=== PATIENT | male | born 1940 | race Caucasian/White ===

== ENCOUNTER 2017-08-29 09:50 | Day surgery (SDC) | payer MEDICARE, BC ==
[2017-08-25 12:11] VITALS: BMI 26.6
[~2017-08-29 09:50] MED LIST: LACTATED RINGERS 1,000 ML IV SCH
[2017-08-29] MEDS ORDERED: LIDOCAINE 1% 20 ML VIAL (10MG/ML) FOR IV START INTRADERMA ONE (10:45)
[2017-08-29 11:00] VITALS: TEMP 98.2
[2017-08-29] MEDS ORDERED: LIDOCAINE 1% INJ 10MG/ML (20 ML MDV) ONE (11:49)
[2017-08-29] MEDS ORDERED: PROPOFOL 10 MG/ML 20 ML VIAL IV ONE (11:49)
--- NOTE | 2017-08-29 12:19 | P.PCN ---
Date of Procedure: 08/29/17 Procedure(s) Performed: Procedure: Colonoscopy and polypectomy. Preoperative diagnosis: Screening for neoplasia, patient has history of polyps. Postoperative diagnosis: 1. Distal sigmoid polyp snared but no large polyps or cancer. 2. Sigmoid diverticulosis with no evidence of acute diverticulitis or strictures. Preparation: HalfLytely prep. Sedation: Was provided by anesthesia. Brief clinical history: The patient is a 77-year-old male who is scheduled for this evaluation for screening for neoplasia because of history of polyps. He has no abdominal complaints, bleeding or anemia. Procedure: With the patient on his left lateral decubitus position and after informed consent and adequate sedation, the perianal area was inspected and it did not show any fissures or fistulas. There were no masses felt on digital rectal examination. The Olympus CFQ 160L video colonoscope was then inserted in the rectum in the usual fashion and advanced to the cecum. There were multiple diverticular orifices seen scattered in the sigmoid but I saw no evidence of acute diverticulitis or strictures. In the distal sigmoid there was a 1-1.5 cm polyp which was snared and retrieved by suction but there was no large polyps or cancer. I retroflexed the endoscope in the rectum before the endoscope was withdrawn. The patient tolerated the procedure well. Plan: The patient was reassured. I discussed with his family as well. Advised dietary measures. He will follow up with you as planned and further screening in 5 years will depend on his overall health at that time.
[2017-08-29] MEDS ORDERED: ENALAPRILAT 1.25 MG/ML 1 ML VIAL IVP ONE ×2 (12:49→13:50)
[2017-08-29 13:05] VITALS: RESP 18
[2017-08-29] MEDS ORDERED: hydrALAZINE HCL 20 MG/ML 1 ML VIAL IVP ONE (13:18)
[2017-08-29 14:18] VITALS: BP 178/84; PULSE 60
== END 2017-08-29 14:20 | disposition home or self-care (01) ==
LOC: ORWHC2ENDO 09:50
DX: Z12.11 Encounter for screening for malignant neoplasm of colon (principal); D12.5 Benign neoplasm of sigmoid colon; K57.30 Diverticulosis of large intestine without perforation or abscess without bleeding; Z86.010 Personal history of colon polyps; I10 Essential (primary) hypertension; E78.5 Hyperlipidemia, unspecified; Z79.899 Other long term (current) drug therapy
CPT/HCPCS: 88305; 45385; J0360; J2001; J2704

== ENCOUNTER 2018-11-23 17:43 | Emergency (ER) | payer MEDICARE, BC ==
[2018-11-23 19:26] LABS: ALT 231 U/L (21-72); AST 307 U/L (17-59); African American GFR (CKD) >90 (>60 ml/min/1.73 sqM); Albumin 4.1 g/dL (3.5-5.0); Alkaline Phosphatase 143 U/L (38-126); Anion Gap 15 mmol/L; Bilirubin, Delta 0.5 mg/dL (0.0-0.2); Blood Urea Nitrogen 18 mg/dL (9-20); Calcium 9.3 mg/dL (8.4-10.2); Carbon Dioxide 25 mmol/L (22-30); Chloride 96 mmol/L (98-107); Glucose 123 mg/dL (74-99); INR 0.9 (<1.2); Partial Thromboplastin Time 24.6 sec (22.0-30.0); Potassium 3.6 mmol/L (3.5-5.1); Sodium 136 mmol/L (137-145); Total Bilirubin 1.5 mg/dL (0.2-1.3); Total Protein 7.5 g/dL (6.3-8.2)
[2018-11-23 19:31] LABS: Basophils # (A) 0.3 k/uL (0-0.2); Basophils % (A) 3 %; Eosinophils # (A) 0.1 k/uL (0-0.7); Eosinophils % (A) 1 %; HCT 37.9 % (39.0-53.0); HGB 12.5 gm/dL (13.0-17.5); Lymphocytes # (A) 0.9 k/uL (1.0-4.8); Lymphocytes % (A) 9 %; MCH 29.4 pg (25.0-35.0); MCV 89.2 fL (80.0-100.0); Mean Platelet Volume 7.3; Monocytes # (A) 0.8 k/uL (0-1.0); Monocytes % (A) 8 %; Neutrophils % (A) 77 %; Platelet Count 193 k/uL (150-450); RBC 4.25 m/uL (4.30-5.90); RDW 12.9 % (11.5-15.5); WBC 10.4 k/uL (3.8-10.6)
[2018-11-23 20:01] LABS: Amorphous Sediment,Urine Occasional /hpf; Appearance,Urine Turbid (Clear); Bacteria,Urine Moderate /hpf; Bilirubin,Urine Negative (Negative); Blood,Urine Moderate (Negative); Color,Urine Yellow; Glucose,Urine (UA) Negative (Negative); Ketones,Urine Negative (Negative); Leukocyte Esterase,Urine Large (Negative); Nitrite,Urine Positive (Negative); PH, Urine 5.5 (5.0-8.0); Protein,Urine 1+ (Negative); RBC,Urine 49 /hpf (0-5); Specific Gravity,Urine 1.015 (1.001-1.035); Squamous Epithelial Cell,Urine 2 /hpf (0-4); WBC,Urine >182 /hpf (0-5)
[2018-11-23] MEDS ORDERED: cefTRIAXone IN SWFI 1,000 MG/10 ML SYRINGE IVP STA (21:02)
[2018-11-23 21:24] VITALS: BP 147/75; PULSE 78; RESP 19; TEMP 98.7
[2018-11-23 21:33] LABS: Lactic Acid, Venous 1.1 mmol/L (0.7-2.0)
[2018-11-23 21:42] LABS: Ammonia <9 umol/L (<30)
--- NOTE | 2018-11-23 22:15 | ED ---
General Adult HPI - General Chief complaint: Recheck/Abnormal Lab/Rx Stated complaint: High white blood count & bilirubin Time Seen by Provider: 11/23/18 17:50 Source: patient, family Mode of arrival: ambulatory Limitations: no limitations - History of Present Illness Initial comments: The patient is a 78-year-old male presents to the emergency room with reported abnormal labs. He states that earlier this week he felt generally weak. He followed up in Dr. Rick's office and had laboratory studies performed. They got a call this evening stating that the patient's white blood cell count and bilirubins were high. He does present to the emergency room and still complaining of generalized weakness. Denies any fevers, chills, nausea or vomiting. No chest pain or shortness of breath. Denies any abdominal pain. Denies any tea-colored urine or-colored stools. Diarrhea, constipation, melanotic stools or hematochezia. Patient does report having a gallbladder. No Tylenol use. Will have one beer every night. No history of end-stage liver d isease. Denies any headaches or visual changes. The patient does have a history of dementia however no additional confusion. No reported cough or chest pain. Denies any urinary complaints. There are no other alleviating, precipitating or modifying factors - Related Data Home Medications Medication Instructions Recorded Confirmed Atorvastatin [Lipitor] 10 mg PO HS 08/25/17 11/23/18 Cholecalciferol [Vitamin D3] 4,000 unit PO HS 08/25/17 11/23/18 Cyanocobalamin (Vitamin B-12) 1,000 mcg PO HS 08/25/17 11/23/18 [Vitamin B-12] Lisinopril-Hctz 20-12.5 mg 1 tab PO HS 08/25/17 11/23/18 [Zestoretic 20-12.5] [place]-3 Fatty Acids/Fish Oil [Fish 1 cap PO HS 08/25/17 11/23/18 Oil 1,000 mg Softgel] amLODIPine BESYLATE [Norvasc] 2.5 mg PO HS 08/25/17 11/23/18 Previous Rx's Medication Instructions Recorded Cephalexin [Keflex] 500 mg PO Q6HR #28 cap 11/23/18 Allergies Allergy/AdvReac Type Severity Reaction Status Date / Time No Known Allergies Allergy Verified 11/23/18 20:01 Review of Systems ROS Statement: Those systems with pertinent positive or pertinent negative responses have been documented in the HPI. ROS Other: All systems not noted in ROS Statement are negative. Past Medical History Past Medical History: Hyperlipidemia, Hypertension, Memory Impairment History of Any Multi-Drug Resistant Organisms: None Reported Past Surgical History: Orthopedic Surgery Additional Past Surgical History / Comment(s): URINARY TRACT SURGERY, LEFT KNEE SURGERY Past Anesthesia/Blood Transfusion Reactions: No Reported Reaction Past Psychological History: No Psychological Hx Reported Smoking Status: Former smoker Past Alcohol Use History: Daily Past Drug Use History: None Reported - Past Family History Mother Family Medical History: No Reported History General Exam Limitations: no limitations General appearance: alert, in no apparent distress Head exam: Present: atraumatic, normocephalic, normal inspection Eye exam: Present: normal appearance, PERRL, EOMI. Absent: scleral icterus, co njunctival injection, periorbital swelling ENT exam: Present: normal exam, mucous membranes moist Neck exam: Present: normal inspection. Absent: tenderness, meningismus, lymphadenopathy Respiratory exam: Present: normal lung sounds bilaterally. Absent: respiratory distress, wheezes, rales, rhonchi, stridor Cardiovascular Exam: Present: regular rate, normal rhythm, normal heart sounds. Absent: systolic murmur, diastolic murmur, rubs, gallop, clicks GI/Abdominal exam: Present: soft, normal bowel sounds. Absent: distended, tenderness, guarding, rebound, rigid Extremities exam: Present: normal inspection, full ROM, normal capillary refill. Absent: tenderness, pedal edema, joint swelling, calf tenderness Back exam: Present: normal inspection Neurological exam: Present: alert, oriented X3, CN II-XII intact Psychiatric exam: Present: normal affect, normal mood Skin exam: Present: warm, dry, intact, normal color. Absent: rash Course Vital Signs 11/23/18 11/23/18 17:49 21:20 Temperature 98.5 F 98.7 F Pulse Rate 75 78 Respiratory 20 19 Rate Blood Pressure 140/72 147/75 O2 Sat by Pulse 97 98 Oximetry Medical Decision Making - Medical Decision Making Upon arrival the patient was placed into room 15. A history of physical exam was performed on the patient. Peripheral IV is established. Laboratory studies demonstrated normal white blood cell count 10.4. Glucose was 123, bilirubin 1.5, AST 307, ALT 231, alk phos of 143, ammonia less than 9. Urinalysis shows moderate blood, large esterase, 49 red blood cells, greater than 182 white blood cells, many white blood cell clumps, occasional amorphous sediment and moderate bacteria. Because this I did give the patient also Rocephin. I did recommend a CT the patient's abdomen and pelvis as well as a gallbladder ultrasound. Preliminary report demonstrated hyperechoic bile however no gallstones or signs of acute cholecystitis. CT of abdomen and pelvis was essentially unremarkable for acute process. I did discuss these results with the patient. I did offer turning the patient's labs however he was very adamant that he wanted to go home at this time. I will prescribe him Keflex. He is follow up with his primary care physician regarding his laboratory findings. The patient was discharged home in stable condition - Lab Data Result diagrams: 11/23/18 18:48 11/23/18 18:48 Lab Results 11/23/18 11/23/18 11/23/18 Range/Units 18:48 18:48 18:48 WBC 10.4 (3.8-10.6) k/uL RBC 4.25 L (4.30-5.90) m/uL Hgb 12.5 L (13.0-17.5) gm/dL Hct 37.9 L (39.0-53.0) % MCV 89.2 (80.0-100.0) fL MCH 29.4 (25.0-35.0) pg MCHC 33.0 (31.0-37.0) g/dL RDW 12.9 (11.5-15.5) % Plt Count 193 (150-450) k/uL Neutrophils % 77 % Lymphocytes % 9 % Monocytes % 8 % Eosinophils % 1 % Basophils % 3 % Neutrophils # 8.0 H (1.3-7.7) k/uL Lymphocytes # 0.9 L (1.0-4.8) k/uL Monocytes # 0.8 (0-1.0) k/uL Eosinophils # 0.1 (0-0.7) k/uL Basophils # 0.3 H (0-0.2) k/uL PT 10.0 (9.0-12.0) sec INR 0.9 (<1.2) APTT 24.6 (22.0-30.0) sec Sodium 136 L (137-145) mmol/L Potassium 3.6 (3.5-5.1) mmol/L Chloride 96 L (98-107) mmol/L Carbon Dioxide 25 (22-30) mmol/L Anion Gap 15 mmol/L BUN 18 (9-20) mg/dL Creatinine 0.85 (0.66-1.25) mg/dL Est GFR (CKD-EPI)AfAm >90 (>60 ml/min/1.73 sqM) Est GFR (CKD-EPI)NonAf 85 (>60 ml/min/1.73 sqM) Glucose 123 H (74-99) mg/dL Plasma Lactic Acid Karel (0.7-2.0) mmol/L Calcium 9.3 (8.4-10.2) mg/dL Total Bilirubin 1.5 H (0.2-1.3) mg/dL Conjugated Bilirubin 0.0 (0.0-0.3) mg/dL Unconjugated Bilirubin 1.0 (0.0-1.1) mg/dL Delta Bilirubin 0.5 H (0.0-0.2) mg/dL AST 307 H (17-59) U/L ALT 231 H (21-72) U/L Alkaline Phosphatase 143 H (38-126) U/L Ammonia (<30) umol/L Total Protein 7.5 (6.3-8.2) g/dL Albumin 4.1 (3.5-5.0) g/dL Lipase 192 (23-300) U/L Urine Color Urine Appearance (Clear) Urine pH (5.0-8.0) Ur Specific [place] (1.001-1.035) Urine Protein (Negative) Urine Glucose (UA) (Negative) Urine Ketones (Negative) Urine Blood (Negative) Urine Nitrite (Negative) Urine Bilirubin (Negative) Urine Urobilinogen (<2.0) mg/dL Ur Leukocyte Esterase (Negative) Urine RBC (0-5) /hpf Urine WBC (0-5) /hpf Urine WBC Clumps (None) /hpf Ur Squamous Epith Cells (0-4) /hpf Amorphous Sediment (None) /hpf Urine Bacteria (None) /hpf 11/23/18 11/23/18 Range/Units 19:36 21:11 WBC (3.8-10.6) k/uL RBC (4.30-5.90) m/uL Hgb (13.0-17.5) gm/dL Hct (39.0-53.0) % MCV (80.0-100.0) fL MCH (25.0-35.0) pg MCHC (31.0-37.0) g/dL RDW (11.5-15.5) % Plt Count (150-450) k/uL Neutrophils % % Lymphocytes % % Monocytes % % Eosinophils % % Basophils % % Neutrophils # (1.3-7.7) k/uL Lymphocytes # (1.0-4.8) k/uL Monocytes # (0-1.0) k/uL Eosinophils # (0-0.7) k/uL Basophils # (0-0.2) k/uL PT (9.0-12.0) sec INR (<1.2) APTT (22.0-30.0) sec Sodium (137-145) mmol/L Potassium (3.5-5.1) mmol/L Chloride (98-107) mmol/L Carbon Dioxide (22-30) mmol/L Anion Gap mmol/L BUN (9-20) mg/dL Creatinine (0.66-1.25) mg/dL Est GFR (CKD-EPI)AfAm (>60 ml/min/1.73 sqM) Est GFR (CKD-EPI)NonAf (>60 ml/min/1.73 sqM) Glucose (74-99) mg/dL Plasma Lactic Acid Karel 1.1 (0.7-2.0) mmol/L Calcium (8.4-10.2) mg/dL Total Bilirubin (0.2-1.3) mg/dL Conjugated Bilirubin (0.0-0.3) mg/dL Unconjugated Bilirubin (0.0-1.1) mg/dL Delta Bilirubin (0.0-0.2) mg/dL AST (17-59) U/L ALT (21-72) U/L Alkaline Phosphatase (38-126) U/L Ammonia <9 (<30) umol/L Total Protein (6.3-8.2) g/dL Albumin (3.5-5.0) g/dL Lipase (23-300) U/L Urine Color Yellow Urine Appearance Turbid (Clear) Urine pH 5.5 (5.0-8.0) Ur Specific [place] 1.015 (1.001-1.035) Urine Protein 1+ H (Negative) Urine Glucose (UA) Negative (Negative) Urine Ketones Negative (Negative) Urine Blood Moderate H (Negative) Urine Nitrite Positive (Negative) Urine Bilirubin Negative (Negative) Urine Urobilinogen 3.0 (<2.0) mg/dL Ur Leukocyte Esterase Large H (Negative) Urine RBC 49 H (0-5) /hpf Urine WBC >182 H (0-5) /hpf Urine WBC Clumps Many H (None) /hpf Ur Squamous Epith Cells 2 (0-4) /hpf Amorphous Sediment Occasional H (None) /hpf Urine Bacteria Moderate H (None) /hpf Disposition Clinical Impression: Elevated liver enzymes, Urinary tract infection Disposition: HOME SELF-CARE Condition: Stable Instructions (If sedation given, give patient instructions): Urinary Tract Infection in Men (ED) Additional Instructions: Please follow-up with your primary care physician regarding your elevated liver enzymes. Return to the emergency room any new or worsening symptoms Prescriptions: Cephalexin [Keflex] 500 mg PO Q6HR #28 cap Is patient prescribed a controlled substance at d/c from ED?: No Referrals: Catarino Rick MD [Primary Care Provider] - 1-2 days Time of Disposition: 22:15
--- NOTE | 2018-11-24 11:34 | US ---
EXAMINATION TYPE: US gallbladder DATE OF EXAM: 11/23/2018 COMPARISON: CT 2019 CLINICAL HISTORY: elevated liver enzymes. Elevated liver enzymes. HTN. Hyperlipidemia. EXAM MEASUREMENTS: Liver Length: 18.9 cm Gallbladder Wall: 0.22 cm CBD: 0.38 cm Right Kidney: 10.9 x 6.0 x 5.2 cm Pancreas: limited due to overlying bowel gas Liver: Enlarged. Normal <15.5 cm. Gallbladder: Internal echoes are seen within the gallbladder. Evidence for sonographic Fiore's sign: no CBD: appears wnl Right Kidney: No hydronephrosis or masses seen IMPRESSION: 1. Debris within the gallbladder. 2. Hepatomegaly 3. Preliminary results were provided by the on-call radiologist.
--- NOTE | 2018-11-24 12:28 | CT ---
EXAMINATION TYPE: CT abdomen pelvis w con DATE OF EXAM: 11/23/2018 COMPARISON: None HISTORY: Elevated white blood cell count CT DLP: 1023.5 mGycm Automated exposure control for dose reduction was used. CONTRAST: CT scan of the abdomen pelvis is performed, patient injected with 100 mL of Isovue 300. FINDINGS- preliminary report provided by radiologist food concession manager LUNG BASES-there is subsegmental changes at both lung bases. Heart is enlarged and there is dense cor onary artery calcification. Mild prominence of the aortic root. There is a small hiatal hernia.. LIVER/GB-there is mild central biliary ductal dilation. No obvious gallstones.. PANCREAS- No gross abnormality is seen. SPLEEN- No gross abnormality is seen. ADRENALS- No gross abnormality is seen. KIDNEYS/BLADDER-there are 2 subcentimeter hypodensities within the right kidney too small to characte rize.. BOWEL-diverticulosis of the bowel with no diagnostic evidence of obstruction.. LYMPH NODES- No greater than 1cm abdominal or pelvic lymph nodes areappreciated. OSSEOUS STRUCTURES-hypertrophic change of the spine noted. There are multiple lucent small subcentime ter lytic lesions involving the iliac bone and sacrum for which bone scan is suggested. OTHER- atherosclerotic change aorta. There is marked bladder wall thickening. The prostate is hetero geneous and enlarged. IMPRESSION- 1. Marked bladder wall thickening correlate for stones cystitis. Follow resolution to exclude underly ing mucosal lesion. 2. Prostate is enlarged and heterogeneous correlate for prostatitis. Correlate with PSA to determine if biopsy of the prostate necessary. 3. Multiple subcentimeter too small to characterize right renal lesions. 4. No gallstones correlate question of gallbladder sludge. There also appears to be very mild central biliary ductal dilation correlate with LFTs studies. 5. There are multiple subcentimeter lucent lesions involving the left iliac bone and sacrum for which bone scan is suggested. 6. Dense coronary artery calcification.
--- NOTE | 2018-11-24 12:36 | XR ---
EXAMINATION TYPE: XR chest 2V DATE OF EXAM: 11/23/2018 COMPARISON: 10/02/2010 TECHNIQUE: PA and lateral views submitted. HISTORY: Cough FINDINGS: The lungs are clear and there is no pneumothorax, pleural effusion, or focal pneumonia. Linear stanford ges at the lung base most typical atelectasis or scar. No overt failure. Arthropathy of the shoulders . Hypertrophic and degenerative change of the spine. IMPRESSION: 1. Basilar scar or atelectasis favored over pneumonia correlate clinically..
== END 2018-11-23 23:02 | disposition home or self-care (01) ==
LOC: EC 17:43
DX: N39.0 Urinary tract infection, site not specified (principal); R74.8 Abnormal levels of other serum enzymes; R53.1 Weakness; F03.90 Unspecified dementia, unspecified severity, without behavioral disturbance, psychotic disturbance, mood disturbance, and anxiety; E78.5 Hyperlipidemia, unspecified; I10 Essential (primary) hypertension; Z87.891 Personal history of nicotine dependence; Z79.899 Other long term (current) drug therapy; Z98.890 Other specified postprocedural states; Z53.20 Procedure and treatment not carried out because of patient's decision for unspecified reasons
CPT/HCPCS: 36415; 80053; 82140; 82248; 83605; 83690; 85025; 85610; 85730; 81001; 71046; 76705; 74177; 99284; 96374; J0696; Q9967

== ENCOUNTER → 2018-12-12 | Outpatient (CLI) | payer MEDICARE, BC ==
--- NOTE | 2018-12-12 21:21 | NM ---
EXAMINATION TYPE: NM bone scan whole body DATE OF EXAM: 12/12/2018 COMPARISON: CT 11/23/2018 HISTORY: 78-year-old male abnormal findings on diagnostic imaging. Technique: Delayed whole-body scanning was performed following the injection of 24.3 mCi Tc 99m MDP. Images acquired 3 hours post injection. FINDINGS: There is degenerative tracer activity at the right greater than left sternoclavicular joints and also degenerative change at the left anterior first rib end. Additional mild degenerative change at the A C joints. Focal activity at the right antecubital fossa relates to injection site. Otherwise, no othe r focal increased tracer activity is identified. IMPRESSION: 1. Degenerative tracer activity at the right greater than left sternoclavicular joints. 2. No scintigraphic evidence for osseous metastatic disease. 3. Given the subtle scattered lucent areas seen within the pelvis on the 11/23/2018 CT, correlate with laboratory assessment to exclude multiple myeloma.
== END | disposition home or self-care (01) ==
LOC: RADNMMAIN 09:48
PROVIDERS: ATTEND Internal Medicine Hematology & Oncology
DX: R93.7 Abnormal findings on diagnostic imaging of other parts of musculoskeletal system (principal)
CPT/HCPCS: 78306; A9503

== ENCOUNTER → 2021-06-04 | Outpatient (CLI) | payer MEDICARE ==
--- NOTE | 2021-06-05 06:40 | MR ---
EXAMINATION TYPE: MR brain wo con DATE OF EXAM: 06/04/2021 COMPARISON: NONE HISTORY: Memory loss, CVA, new onset dementia TECHNIQUE: Multiplanar, multisequence imaging of the brain and brainstem is performed without IV cont rast. FINDINGS: Diffusion weighted images demonstrate no evidence of a recent infarct or other diffusion abnormality. There is moderate ventricular and sulcal prominence. There are multifocal and confluent areas of T2 h yperintensity seen throughout the superficial, deep, and periventricular white matter bilaterally. Midline structures demonstrate normal morphology. The craniocervical junction appears within normal limits. Normal vascular flow voids are present. Incidental dominant left vertebral artery. Mild mucos al thickening involving anterior ethmoid sinuses bilaterally. Globes are intact bilaterally. IMPRESSION: 1. No MRI evidence for a recent infarct. 2. Background moderate diffuse cerebral atrophy and advanced chronic small vessel ischemic change is present. 3. Mild anterior chronic ethmoid sinus disease.
== END | disposition home or self-care (01) ==
LOC: RADMRIMAIN 07:16
PROVIDERS: ATTEND Psychiatry & Neurology Neurology
DX: G31.89 Other specified degenerative diseases of nervous system (principal); I67.82 Cerebral ischemia; J32.2 Chronic ethmoidal sinusitis
CPT/HCPCS: 70551

== ENCOUNTER → 2022-02-09 | Day surgery (SDC) | payer MEDICARE ==
[2022-02-04 14:52] VITALS: BMI 24.3
[~2022-02-09] MED LIST changes: +LIDOCAINE 1% (10MG/ML) FOR IV START INTRADERMA PRN; +LIDOCAINE 2% INJ 20 MG/ML (2 ML VIAL) ONE; +PROPOFOL 10 MG/ML 20 ML VIAL IV ONE
[2022-02-09 08:46] VITALS: TEMP 98
--- NOTE | 2022-02-09 09:20 | P.PCN ---
Date of Procedure: 02/09/22 Procedure(s) Performed: BRIEF HISTORY: Patient is a 81-year-old pleasant white male male scheduled for an elective colonoscopy as a part of evaluation of prior history of colon polyps. Last colonoscopy was 4 years ago. PROCEDURE PERFORMED: Colonoscopy with snare polypectomy PREOPERATIVE DIAGNOSIS: History of colon polyps IV sedation per Anesthesia. PROCEDURE: After informed consent was obtained, the patient, was brought into the endoscopy unit. IV sedation was administered by Anesthesia under continuous monitoring. Digital rectal examination was normal. Initially the Olympus CF-160 flexible video colonoscope was then inserted in the rectum, gradually advanced into the cecum without any difficulty. Careful examination was performed as the scope was gradually being withdrawn. Ileocecal valve and the appendiceal orifice were visualized and appeared normal. Prep was excellent. Mucosa of the cecum, ascending colon, appeared normal. In the hepatic flexure there was a 2.5 cm broad-based polyp that was removed by piecemeal snare polypectomy and complete polypectomy accomplished. Rest of the transverse colon, descending colon, sigmoid colon, and rectum appeared normal. In the sigmoid: There was a 5 mm polyp removed by snare polyp rectum he. Scattered sigmoid diverticulosis seen. Retroflexion was performed in the rectum and no lesions were seen. The patient tolerated the procedure well. IMPRESSION: 2.5 cm broad-based hepatic flexure polyp status post polypectomy 5 mm sigmoid polyp status post polypectomy Scattered diffuse diverticulosis RECOMMENDATIONS: Findings of this examination were discussed with the patient as well as his family. He was advised to follow with the biopsy results. If the biopsy results adenoma he can have a repeat colonoscopy in 3 years.
[2022-02-09 09:48] VITALS: BP 130/70; PULSE 58; RESP 16
== END ==
LOC: ORWHC2ENDO 07:27
PROVIDERS: ATTEND Internal Medicine Gastroenterology
DX: Z12.11 Encounter for screening for malignant neoplasm of colon (principal); D12.3 Benign neoplasm of transverse colon; D12.5 Benign neoplasm of sigmoid colon; K57.30 Diverticulosis of large intestine without perforation or abscess without bleeding; I10 Essential (primary) hypertension; E78.5 Hyperlipidemia, unspecified; F03.90 Unspecified dementia, unspecified severity, without behavioral disturbance, psychotic disturbance, mood disturbance, and anxiety; Z79.01 Long term (current) use of anticoagulants; Z87.891 Personal history of nicotine dependence; Z79.83 Long term (current) use of bisphosphonates; Z98.890 Other specified postprocedural states; Z86.010 Personal history of colon polyps; Z79.899 Other long term (current) drug therapy
CPT/HCPCS: 88305; 45385; J2704; J2001

== ENCOUNTER 2022-02-11 17:15 | Emergency (ER) | payer MEDICARE ==
[2022-02-11 18:15] VITALS: TEMP 98
[2022-02-11] MEDS ORDERED: SODIUM CHLORIDE 0.9% 1,000 ML IV STA ×2 (18:47)
[2022-02-11 18:53] LABS: Glucose,Whole Blood 111 mg/dL (70-110)
[2022-02-11 19:06] VITALS: RESP 18
[2022-02-11 19:08] VITALS: BP 115/74; PULSE 55
[2022-02-11 19:08] LABS: Basophils # (A) 0.1 k/uL (0-0.2); Basophils % (A) 1 %; Eosinophils # (A) 0.3 k/uL (0-0.7); Eosinophils % (A) 3 %; HCT 33.2 % (39.0-53.0); HGB 11.5 gm/dL (13.0-17.5); Lymphocytes # (A) 3.3 k/uL (1.0-4.8); Lymphocytes % (A) 37 %; MCH 31.2 pg (25.0-35.0); MCHC 34.7 g/dL (31.0-37.0); MCV 90.1 fL (80.0-100.0); Mean Platelet Volume 8.4; Monocytes # (A) 0.6 k/uL (0-1.0); Monocytes % (A) 7 %; Neutrophils # (A) 4.3 k/uL (1.3-7.7); Neutrophils % (A) 49 %; Platelet Count 223 k/uL (150-450); RBC 3.68 m/uL (4.30-5.90); RDW 12.6 % (11.5-15.5); WBC 8.8 k/uL (3.8-10.6)
[2022-02-11 19:18] LABS: Albumin 3.4 g/dL (3.5-5.0); Calcium 8.6 mg/dL (8.4-10.2); Potassium 4.1 mmol/L (3.5-5.1); Total Bilirubin 0.4 mg/dL (0.2-1.3)
[2022-02-11 19:29] LABS: INR 1.1 (<1.2); Partial Thromboplastin Time 22.4 sec (22.0-30.0); Prothrombin Time 11.6 sec (9.0-12.0)
--- NOTE | 2022-02-11 19:51 | ED ---
GI Bleed HPI - General Chief complaint: GI Bleed Stated complaint: Rectal Bleeding Time Seen by Provider: 02/11/22 18:38 Source: patient Mode of arrival: ambulatory Limitations: no limitations - History of Present Illness Initial comments: This 81-year-old male presents with family for rectal bleeding. He apparently had a colonoscopy with all approximate done [address] Gordon from gastroenterology. He had been doing fine up until today when he had several episodes of bright red blood per rectum. While in the waiting room, he had a syncopal episode. He then had another syncopal episode when he got back to a bed in the emergency department which lasted 30-40 seconds. He denies any abdominal pain. There is no fevers or chills. The patient does have a degree of dementia and therefore most of history is obtained per and son. relates that he does not normally take any blood thinners. She gave him some aspirin yesterday for minor pain. No other complaints or modifying factors. - Related Data Home Medications Medication Instructions Recorded Confirmed Atorvastatin [Lipitor] 10 mg PO HS 08/25/17 02/09/22 Cholecalciferol [Vitamin D3] 100 mcg PO HS 08/25/17 02/09/22 Cyanocobalamin (Vitamin B-12) 1,000 mcg PO HS 08/25/17 02/09/22 [Vitamin B-12] Lisinopril-Hctz 20-12.5 mg 1 tab PO HS 08/25/17 02/09/22 [Zestoretic 20-12.5] [place]-3 Fatty Acids/Fish Oil [Fish 1 cap PO HS 08/25/17 02/09/22 Oil 1,000 mg Softgel] amLODIPine BESYLATE [Norvasc] 2.5 mg PO HS 08/25/17 02/09/22 Donepezil [Aricept] 10 mg PO DAILY 02/04/22 02/09/22 Memantine HCl 10 mg PO BID 02/04/22 02/09/22 Allergies Allergy/AdvReac Type Severity Reaction Status Date / Time No Known Allergies Allergy Verified 02/11/22 18:15 Review of Systems ROS Statement: Those systems with pertinent positive or pertinent negative responses have been documented in the HPI. ROS Other: All systems not noted in ROS Statement are negative. Past Medical History Past Medical History: Hyperlipidemia, Hypertension, Memory Impairment Additional Past Medical History / Comment(s): short term memory loss, diagnosed with dementia in 2020 pt alert and appropriate at this time, recent weight loss without trying, History of Any Multi-Drug Resistant Organisms: None Reported Past Surgical History: Orthopedic Surgery Additional Past Surgical History / Comment(s): URINARY TRACT SURGERY, LEFT KNEE SURGERY Past Anesthesia/Blood Transfusion Reactions: No Reported Reaction Past Psychological History: No Psychological Hx Reported Smoking Status: Former smoker Past Alcohol Use History: None Reported Past Drug Use History: None Reported - Past Family History Mother Family Medical History: No Reported History General Exam - General Exam Comments Initial Comments: GENERAL: The patient is well nourished and well hydrated. VITAL SIGNS: Heart rate, blood pressure, respiratory rate reviewed as recorded in nurse's notes. EYES: Pupils are round and reactive. Extraocular movements are intact. No conjunctival / lid redness or swelling. ENT: No external evidence of injury, swelling, or ecchymosis. Airway is patent. Throat is clear. NECK: Nontender. No swelling or evidence of injury. No subcutaneous emphysema. Trachea is midline. No thyroid mass. HEART: Regular rate and rhythm. Good peripheral pulses. LUNGS/CHEST: Breath sounds clear and equal bilaterally. No rales, rhonchi, or wheezes. No ecchymosis, subcutaneous emphysema, or tenderness. ABDOMEN: Abdomen soft without tenderness. No palpable masses or organomegaly. No peritoneal signs. No abdominal wall swelling or ecchymosis. EXTREMITIES: No extremity tenderness. Normal muscle tone and function. No thoracolumbar tenderness. NEUROLOGIC: Sensation is grossly intact. Cranial nerve exam reveals face is symmetrical, tongue is midline, speech is clear. SKIN: No abrasions or ecchymosis is noted. No induration or masses noted. PSYCHIATRIC: Alert but pleasantly demented. Appropriate behavior and judgment. Limitations: no limitations Course Vital Signs 02/11/22 02/11/22 02/11/22 18:08 18:34 18:37 Temperature 98 F Pulse Rate 68 40 L 42 L Respiratory 18 16 18 Rate Blood Pressure 132/78 52/40 62/40 O2 Sat by Pulse 100 96 98 Oximetry 02/11/22 02/11/22 18:42 19:07 Temperature Pulse Rate 50 L 55 L Respiratory 18 18 Rate Blood Pressure 106/71 115/74 O2 Sat by Pulse 96 100 Oximetry Medical Decision Making - Medical Decision Making The patient was seen and examined. All diagnostics were reviewed. The patient has an EKG done which shows a sinus bradycardia at a rate of 51. There is no acute ST-T wave changes identified. The VT intervals 242, QRS duration is 90, and the QTC intervals 408. The patient was placed on a internet consultant and this just shows a sinus bradycardia. Laboratory came back showing a low hemoglobin at 11.5. Remainder of labs are essentially within normal limits. We do not have any old hemoglobins on file to compare. It is felt as though he would benefit from transfer to a larger facility that has GI coverage is recurrently do not have any gastroenterology coverage. The patient does receive some moderate fluid hydration. He is doing well on recheck. He had another large bowel movement that was bloody in the emergency department. Family is agreeable with transfer. Case is discussed with Dr. Aranda from the emergency department and she is agreeable with transfer. - Lab Data Result diagrams: 02/11/22 18:40 02/11/22 18:40 Lab Results 02/11/22 02/11/22 02/11/22 Range/Units 18:40 18:40 18:40 WBC 8.8 (3.8-10.6) k/uL RBC 3.68 L (4.30-5.90) m/uL Hgb 11.5 L (13.0-17.5) gm/dL Hct 33.2 L (39.0-53.0) % MCV 90.1 (80.0-100.0) fL MCH 31.2 (25.0-35.0) pg MCHC 34.7 (31.0-37.0) g/dL RDW 12.6 (11.5-15.5) % Plt Count 223 (150-450) k/uL MPV 8.4 Neutrophils % 49 % Lymphocytes % 37 % Monocytes % 7 % Eosinophils % 3 % Basophils % 1 % Neutrophils # 4.3 (1.3-7.7) k/uL Lymphocytes # 3.3 (1.0-4.8) k/uL Monocytes # 0.6 (0-1.0) k/uL Eosinophils # 0.3 (0-0.7) k/uL Basophils # 0.1 (0-0.2) k/uL PT 11.6 (9.0-12.0) sec INR 1.1 (<1.2) APTT 22.4 (22.0-30.0) sec Sodium 139 (137-145) mmol/L Potassium 4.1 (3.5-5.1) mmol/L Chloride 106 (98-107) mmol/L Carbon Dioxide 27 (22-30) mmol/L Anion Gap 6 mmol/L BUN 19 (9-20) mg/dL Creatinine 0.97 (0.66-1.25) mg/dL Est GFR (CKD-EPI)AfAm 86 (>60 ml/min/1.73 sqM) Est GFR (CKD-EPI)NonAf 75 (>60 ml/min/1.73 sqM) Glucose 114 H (74-99) mg/dL POC Glucose (mg/dL) (70-110) mg/dL POC Glu Otolaryngology Nurse ID Calcium 8.6 (8.4-10.2) mg/dL Total Bilirubin 0.4 (0.2-1.3) mg/dL AST 27 (17-59) U/L ALT 24 (4-49) U/L Alkaline Phosphatase 68 (38-126) U/L Troponin I (0.000-0.034) ng/mL Total Protein 6.0 L (6.3-8.2) g/dL Albumin 3.4 L (3.5-5.0) g/dL Blood Type Recheck Bld Type Recheck Status 02/11/22 02/11/22 02/11/22 Range/Units 18:40 18:49 18:55 WBC (3.8-10.6) k/uL RBC (4.30-5.90) m/uL Hgb (13.0-17.5) gm/dL Hct (39.0-53.0) % MCV (80.0-100.0) fL MCH (25.0-35.0) pg MCHC (31.0-37.0) g/dL RDW (11.5-15.5) % Plt Count (150-450) k/uL MPV Neutrophils % % Lymphocytes % % Monocytes % % Eosinophils % % Basophils % % Neutrophils # (1.3-7.7) k/uL Lymphocytes # (1.0-4.8) k/uL Monocytes # (0-1.0) k/uL Eosinophils # (0-0.7) k/uL Basophils # (0-0.2) k/uL PT (9.0-12.0) sec INR (<1.2) APTT (22.0-30.0) sec Sodium (137-145) mmol/L Potassium (3.5-5.1) mmol/L Chloride (98-107) mmol/L Carbon Dioxide (22-30) mmol/L Anion Gap mmol/L BUN (9-20) mg/dL Creatinine (0.66-1.25) mg/dL Est GFR (CKD-EPI)AfAm (>60 ml/min/1.73 sqM) Est GFR (CKD-EPI)NonAf (>60 ml/min/1.73 sqM) Glucose (74-99) mg/dL POC Glucose (mg/dL) 111 H (70-110) mg/dL POC Glu Otolaryngology Nurse ID HenriqueerMeaghan Calcium (8.4-10.2) mg/dL Total Bilirubin (0.2-1.3) mg/dL AST (17-59) U/L ALT (4-49) U/L Alkaline Phosphatase (38-126) U/L Troponin I <0.012 (0.000-0.034) ng/mL Total Protein (6.3-8.2) g/dL Albumin (3.5-5.0) g/dL Blood Type Recheck No Previous Record Bld Type Recheck Status CABO Indicated Disposition Clinical Impression: Rectal bleeding, History of rectal polypectomy, Anemia, Sinus bradycardia, Dementia, Syncope Disposition: OTHER INSTITUTION NOT DEFINED Condition: Fair Time of Disposition: 19:55 - Out of Hospital Transfer - Req. Specs Out of Hospital Transfer - Requested Specifics: Other Emergency Center ([facility])
== END 2022-02-11 21:26 | disposition other institution (70) ==
LOC: EC 17:15
DX: K92.2 Gastrointestinal hemorrhage, unspecified (principal); D64.9 Anemia, unspecified; R00.1 Bradycardia, unspecified; F03.90 Unspecified dementia, unspecified severity, without behavioral disturbance, psychotic disturbance, mood disturbance, and anxiety; R55 Syncope and collapse; I10 Essential (primary) hypertension; E78.5 Hyperlipidemia, unspecified; Z86.010 Personal history of colon polyps; Z87.891 Personal history of nicotine dependence; Z79.899 Other long term (current) drug therapy
CPT/HCPCS: 36415; 80053; 84484; 85025; 85610; 85730; 86850; 86900; 86901; 93005; 96360; 96361; 99285

== ENCOUNTER 2022-03-07 11:51 | Emergency (ER) | payer MEDICARE ==
[2022-03-07 11:57] VITALS: TEMP 97.8
[2022-03-07] MEDS ORDERED: SODIUM CHLORIDE 0.9% 500 ML 500 ML IV STA (12:11)
--- NOTE | 2022-03-07 12:32 | XR ---
EXAMINATION TYPE: XR chest 2V DATE OF EXAM: 03/07/2022 12:25 PM COMPARISON: Chest radiographs from TECHNIQUE: XR chest 2V Frontal and lateral views of the chest. CLINICAL INDICATION:Male, 81 years old with history of syncope; FINDINGS: Lungs/Pleura: There is flattening of the diaphragm with increased lucency of the lungs. No evidence o f pneumothorax, pleural effusion or focal consolidation. Pulmonary vascularity: Unremarkable. Heart/mediastinum: Cardiomediastinal silhouette is unremarkable. Musculoskeletal: No acute osseous pathology. IMPRESSION: 1. No acute cardiopulmonary disease process. 2. COPD changes.
[2022-03-07 12:46] LABS: Basophils % (A) 1 %; Eosinophils # (A) 0.2 k/uL (0-0.7); Eosinophils % (A) 3 %; HCT 35.1 % (39.0-53.0); HGB 11.5 gm/dL (13.0-17.5); Lymphocytes % (A) 17 %; MCH 29.7 pg (25.0-35.0); MCHC 32.8 g/dL (31.0-37.0); MCV 90.7 fL (80.0-100.0); Mean Platelet Volume 8.2; Monocytes # (A) 0.4 k/uL (0-1.0); Monocytes % (A) 7 %; Neutrophils # (A) 4.1 k/uL (1.3-7.7); Neutrophils % (A) 70 %; Platelet Count 208 k/uL (150-450); RBC 3.87 m/uL (4.30-5.90); RDW 13.6 % (11.5-15.5); WBC 5.8 k/uL (3.8-10.6)
[2022-03-07 13:00] LABS: Albumin 3.9 g/dL (3.5-5.0)
[2022-03-07 13:02] LABS: Calcium 8.6 mg/dL (8.4-10.2); Magnesium 2.1 mg/dL (1.6-2.3); Potassium 3.8 mmol/L (3.5-5.1); Total Bilirubin 0.6 mg/dL (0.2-1.3); Total Protein 6.9 g/dL (6.3-8.2)
--- NOTE | 2022-03-07 13:02 | CT ---
EXAMINATION TYPE: CT brain wo con CT DLP: 1107.4 mGycm, Automated exposure control for dose reduction was used. DATE OF EXAM: 03/07/2022 12:50 PM COMPARISON: MR brain 06/04/2021 CLINICAL INDICATION:Male, 81 years old with history of syncope, ams TECHNIQUE: Brain: Axial CT images of the brain were obtained with coronal and sagittal reformats created and rev iewed. Contrast used: None. Oral contrast used: None. FINDINGS: Brain: Extra-axial spaces: No abnormal extra-axial fluid collections. Ventricular system: Dilatation in proportion to cerebral atrophy. Cerebral parenchyma: Cerebral atrophy. No acute intraparenchymal hemorrhage or mass effect. The parikh -white junction is well differentiated. Scattered hypoattenuating areas are seen within the white mat ter. Cerebellum: Unremarkable. Mass effect: No evidence of midline shift. Intracranial vasculature: Atherosclerotic calcifications of the intracranial vessels. Soft tissues: Normal. Calvarium/osseous structures: No depressed skull fracture. Paranasal sinuses and mastoid air cells: Mild scattered paranasal sinus disease. Visualized orbits: Orbital contents are intact. IMPRESSION: 1. No acute intracranial process. 2. Nonspecific white matter changes, likely secondary to chronic small vessel ischemic disease.
[2022-03-07 13:22] LABS: INR 1.1 (<1.2); Prothrombin Time 11.1 sec (9.0-12.0)
[2022-03-07 13:27] LABS: Partial Thromboplastin Time 20.1 sec (22.0-30.0)
[2022-03-07 13:35] LABS: Appearance,Urine Clear (Clear); Bilirubin,Urine Negative (Negative); Blood,Urine Negative (Negative); Color,Urine Yellow; Glucose,Urine (UA) Negative (Negative); Ketones,Urine Negative (Negative); Leukocyte Esterase,Urine Negative (Negative); Nitrite,Urine Negative (Negative); Protein,Urine Trace (Negative); Specific Gravity,Urine 1.021 (1.001-1.035)
--- NOTE | 2022-03-07 13:36 | ED ---
General Adult HPI - General Chief complaint: Syncope Stated complaint: Syncope Time Seen by Provider: 03/07/22 12:03 Source: EMS Mode of arrival: EMS Limitations: altered mental status - History of Present Illness Initial comments: Patient is a 81-year-old male presenting via EMS for chief complaint of syncope. Patient had a syncopal episode while at [employer] today. Patient's at bedside states that he did not hit his head. He was sitting at [employer] and she looked over and noticed he had passed out. She states that he has previously passed out before, this was when he had to have a bowel movement and was clenching. Patient denies any chest pain, difficulty breathing, headache, palpitations, abdominal pain, nausea, vomiting, neck pain or stiffness, numbness, tingling. - Related Data Home Medications Medication Instructions Recorded Confirmed Atorvastatin [Lipitor] 10 mg PO HS 08/25/17 03/07/22 Cyanocobalamin (Vitamin B-12) 1,000 mcg PO HS 08/25/17 03/07/22 [Vitamin B-12] Lisinopril-Hctz 20-12.5 mg 1 tab PO HS 08/25/17 03/07/22 [Zestoretic 20-12.5] [place]-3 Fatty Acids/Fish Oil [Fish 2 cap PO HS 08/25/17 03/07/22 Oil 1,000 mg Softgel] amLODIPine BESYLATE [Norvasc] 2.5 mg PO HS 08/25/17 03/07/22 Donepezil [Aricept] 10 mg PO HS 02/04/22 03/07/22 Memantine HCl 10 mg PO BID 02/04/22 03/07/22 Cholecalciferol [Vitamin D3 (25 100 mcg PO HS 03/07/22 03/07/22 Mcg = 1000 Iu)] Pantoprazole [Protonix] 40 mg PO HS 03/07/22 03/07/22 Allergies Allergy/AdvReac Type Severity Reaction Status Date / Time No Known Allergies Allergy Verified 03/07/22 13:34 Review of Systems ROS Statement: Those systems with pertinent positive or pertinent negative responses have been documented in the HPI. ROS Other: All systems not noted in ROS Statement are negative. Past Medical History Past Medical History: Hyperlipidemia, Hypertension, Memory Impairment Additional Past Medical History / Comment(s): short term memory loss, diagnosed with dementia in 2020 pt alert and appropriate at this time, recent weight loss without trying, History of Any Multi-Drug Resistant Organisms: None Reported Past Surgical History: Orthopedic Surgery Additional Past Surgical History / Comment(s): URINARY TRACT SURGERY, LEFT KNEE SURGERY Past Anesthesia/Blood Transfusion Reactions: No Reported Reaction Past Psychological History: No Psychological Hx Reported Smoking Status: Former smoker Past Alcohol Use History: None Reported Past Drug Use History: None Reported - Past Family History Mother Family Medical History: No Reported History General Exam Limitations: altered mental status (History of dementia, at his baseline) General appearance: alert, in no apparent distress Head exam: Present: atraumatic, normocephalic, normal inspection Eye exam: Present: normal appearance, PERRL, EOMI. Absent: scleral icterus, conjunctival injection, periorbital swelling Pupils: Present: normal accommodation Neck exam: Present: normal inspection, full ROM Respiratory exam: Present: normal lung sounds bilaterally. Absent: respiratory distress, wheezes, rales, rhonchi, stridor Cardiovascular Exam: Present: regular rate, normal rhythm, normal heart sounds. Absent: systolic murmur, diastolic murmur, rubs, gallop, clicks GI/Abdominal exam: Present: soft. Absent: distended, tenderness, guarding, rebound, rigid Rectal exam: Present: normal inspection, normal rectal tone, heme (-) stool Neurological exam: Present: alert, altered (Baseline), CN II-XII intact Psychiatric exam: Present: normal affect, normal mood Skin exam: Present: warm, dry, intact, normal color. Absent: rash Course Vital Signs 03/07/22 03/07/22 03/07/22 11:53 12:04 12:30 Temperature 97.8 F Pulse Rate 51 L 51 L 48 L Pulse Rate [ Vendor Management Consultant ] Respiratory 16 16 22 Rate Blood Pressure 130/62 130/62 129/72 Blood Pressure [Right Arm Supine] O2 Sat by Pulse 100 95 100 Oximetry 03/07/22 03/07/22 03/07/22 13:00 13:30 13:53 Temperature Pulse Rate 68 Pulse Rate [ 51 L Vendor Management Consultant ] Respiratory 18 20 Rate Blood Pressure 121/60 Blood Pressure 136/66 [Right Arm Supine] O2 Sat by Pulse 98 Oximetry 03/07/22 03/07/22 03/07/22 13:56 13:59 14:48 Temperature Pulse Rate 52 L Pulse Rate [ 50 L 58 L Vendor Management Consultant ] Respiratory 18 Rate Blood Pressure 136/72 Blood Pressure 150/87 137/85 [Right Arm Supine] O2 Sat by Pulse 98 Oximetry EKG Findings - EKG Comments: EKG Findings:: Sinus bradycardia with first-degree AV block. Ventricular rate 51. OR interval at 282. QRS 98. QT 412. QTc 387. No acute changes from previous EKG. Medical Decision Making - Medical Decision Making Was pt. sent in by a medical professional or institution (, PA, QUICK MIXER OPERATOR, urgent care, hospital, or prison...) When possible be specific @ -[No] Did you speak to anyone other than the patient for history (EMS, parent, family, police, friend...)? What history was obtained from this source @ - and son Did you review nursing and triage notes (agree or disagree)? Why? @ -[I reviewed and agree with nursing and triage notes] Were old charts reviewed (outside hosp., previous admission, EMS record, old EKG, old radiological studies, urgent care reports/EKG's, prison records)? Report findings @ -Previous records were reviewed Differential Diagnosis (chest pain, altered mental status, abdominal pain women, abdominal pain men, vaginal bleeding, weakness, fever, dyspnea, syncope, headache, dizziness, GI bleed, back pain, seizure, CVA, palpatations, mental health)? @ -MDM Differential Syncope: Valvular disease, hypertrophic cardiomyopathy, tachycardia, bradycardia, WI, hypovolemia, hemorrhage, dissection, anemia, intracranial hemorrhage, seizure, hypoglycemia, carbon monoxide poisoning this is not meant to be an all- inclusive list. EKG interpreted by me (3pts min.). @ -[As above] X-rays interpreted by me (1pt min.). @ -Chest x-ray shows no acute process CT interpreted by me (1pt min.). @ -CT of the brain shows no acute intracranial process. U/S interpreted by me (1pt. min.). @ -[None done] What testing was considered but not performed or refused? (CT, X-rays, U/S, labs)? Why? @ -[None] What meds were considered but not given or refused? Why? @ -[None] Did you discuss the management of the patient with other professionals (professionals i.e. , PA, QUICK MIXER OPERATOR, lab, RT, psych nurse, social services aide, electrical assemblies supervisor, teacher, command center officer, case management director)? Give summary @ -[No] Was smoking cessation discussed for >3mins.? @ -[No] Was critical care preformed (if so, how long)? @ -[No] Were there social determinants of health that impacted care today? How? (Homelessness, low income, unemployed, alcoholism, drug addiction, transportation, low edu. Level, literacy, decrease access to med. care, fpc, rehab)? @ -[No] Was there de-escalation of care discussed even if they declined (Discuss DNR or withdrawal of care, Hospice)? DNR status @ -[No] What co-morbidities impacted this encounter? (DM, HTN, Smoking, COPD, CAD, Cancer, CVA, ARF, Chemo, Hep., AIDS, mental health diagnosis, sleep apnea, morbid obesity)? @ -Hypertension, hyperlipidemia, dementia Was patient admitted / discharged? Hospital course, mention meds given and route, prescriptions, significant lab abnormalities, going to OR and other pertinent info. @ -Patient is a 81-year-old male presenting with chief complaint of syncope. Patient had an episode at [employer] while sitting, he did not hit his head, no blood thinners. While obtaining history patient is asymptomatic. Physical e xamination is unremarkable. Family member sure that he has had a syncopal episode before due to clenching when he has to have a bowel movement. Hemoglobin 11.5, consistent with baseline. Troponin less than 0.012. CMP is unremarkable. Urine is unremarkable. Stool occult blood is negative. CT of the brain and chest x-ray showed no acute process. EKG shows sinus bradycardia and no acute changes from previous EKG. Patient continues to remain asymptomatic throughout his course. Likely vasovagal syncope due to clenching, states that prior to his episode he informed her that he had to have a bowel movement but he did not want to get up in the middle of jain. and son are agreeable with discharge at this time. Follow-up with PCP. Report back to ER with any new or worsening symptoms. Discussed return parameters and answered all questions. Patient conveyed verbal understanding and agreed to the plan. I discussed this case in detail with my attending Dr. Padron Undiagnosed new problem with uncertain prognosis? @ -[No] Drug Therapy requiring intensive monitoring for toxicity (Heparin, Nitro, Insulin, Cardizem)? @ -[No] Were any procedures done? @ -[No] Diagnosis/symptom? @ -Vasovagal syncope Acute, or Chronic, or Acute on Chronic? @ -Acute Uncomplicated (without systemic symptoms) or Complicated (systemic symptoms)? @ -Uncomplicated Side effects of treatment? @ -[No] Exacerbation, Progression, or Severe Exacerbation? @ -[No] Poses a threat to life or bodily function? How? (Chest pain, [place], [place], pneumonia, PE, COPD, DKA, ARF, appy, cholecystitis, CVA, Diverticulitis, Homicidal, Suicidal, threat to staff... and all critical care pts) @ -[No] - Lab Data Result diagrams: 03/07/22 12:36 03/07/22 12:36 Lab Results 03/07/22 03/07/22 03/07/22 Range/Units 12:36 12:36 12:36 WBC 5.8 (3.8-10.6) k/uL RBC 3.87 L (4.30-5.90) m/uL Hgb 11.5 L (13.0-17.5) gm/dL Hct 35.1 L (39.0-53.0) % MCV 90.7 (80.0-100.0) fL MCH 29.7 (25.0-35.0) pg MCHC 32.8 (31.0-37.0) g/dL RDW 13.6 (11.5-15.5) % Plt Count 208 (150-450) k/uL MPV 8.2 Neutrophils % 70 % Lymphocytes % 17 % Monocytes % 7 % Eosinophils % 3 % Basophils % 1 % Neutrophils # 4.1 (1.3-7.7) k/uL Lymphocytes # 1.0 (1.0-4.8) k/uL Monocytes # 0.4 (0-1.0) k/uL Eosinophils # 0.2 (0-0.7) k/uL Basophils # 0.0 (0-0.2) k/uL PT 11.1 (9.0-12.0) sec INR 1.1 (<1.2) APTT 20.1 L (22.0-30.0) sec Sodium 138 (137-145) mmol/L Potassium 3.8 (3.5-5.1) mmol/L Chloride 105 (98-107) mmol/L Carbon Dioxide 29 (22-30) mmol/L Anion Gap 4 mmol/L BUN 19 (9-20) mg/dL Creatinine 0.95 (0.66-1.25) mg/dL Est GFR (CKD-EPI)AfAm 88 (>60 ml/min/1.73 sqM) Est GFR (CKD-EPI)NonAf 76 (>60 ml/min/1.73 sqM) Glucose 108 H (74-99) mg/dL Calcium 8.6 (8.4-10.2) mg/dL Magnesium 2.1 (1.6-2.3) mg/dL Total Bilirubin 0.6 (0.2-1.3) mg/dL AST 25 (17-59) U/L ALT 26 (4-49) U/L Alkaline Phosphatase 70 (38-126) U/L Troponin I (0.000-0.034) ng/mL Total Protein 6.9 (6.3-8.2) g/dL Albumin 3.9 (3.5-5.0) g/dL Urine Color Urine Appearance (Clear) Urine pH (5.0-8.0) Ur Specific [place] (1.001-1.035) Urine Protein (Negative) Urine Glucose (UA) (Negative) Urine Ketones (Negative) Urine Blood (Negative) Urine Nitrite (Negative) Urine Bilirubin (Negative) Urine Urobilinogen (<2.0) mg/dL Ur Leukocyte Esterase (Negative) Stool Occult Blood (Negative) 03/07/22 03/07/22 03/07/22 Range/Units 12:36 12:36 13:27 WBC (3.8-10.6) k/uL RBC (4.30-5.90) m/uL Hgb (13.0-17.5) gm/dL Hct (39.0-53.0) % MCV (80.0-100.0) fL MCH (25.0-35.0) pg MCHC (31.0-37.0) g/dL RDW (11.5-15.5) % Plt Count (150-450) k/uL MPV Neutrophils % % Lymphocytes % % Monocytes % % Eosinophils % % Basophils % % Neutrophils # (1.3-7.7) k/uL Lymphocytes # (1.0-4.8) k/uL Monocytes # (0-1.0) k/uL Eosinophils # (0-0.7) k/uL Basophils # (0-0.2) k/uL PT (9.0-12.0) sec INR (<1.2) APTT (22.0-30.0) sec Sodium (137-145) mmol/L Potassium (3.5-5.1) mmol/L Chloride (98-107) mmol/L Carbon Dioxide (22-30) mmol/L Anion Gap mmol/L BUN (9-20) mg/dL Creatinine (0.66-1.25) mg/dL Est GFR (CKD-EPI)AfAm (>60 ml/min/1.73 sqM) Est GFR (CKD-EPI)NonAf (>60 ml/min/1.73 sqM) Glucose (74-99) mg/dL Calcium (8.4-10.2) mg/dL Magnesium (1.6-2.3) mg/dL Total Bilirubin (0.2-1.3) mg/dL AST (17-59) U/L ALT (4-49) U/L Alkaline Phosphatase (38-126) U/L Troponin I <0.012 (0.000-0.034) ng/mL Total Protein (6.3-8.2) g/dL Albumin (3.5-5.0) g/dL Urine Color Yellow Urine Appearance Clear (Clear) Urine pH 6.0 (5.0-8.0) Ur Specific [place] 1.021 (1.001-1.035) Urine Protein Trace H (Negative) Urine Glucose (UA) Negative (Negative) Urine Ketones Negative (Negative) Urine Blood Negative (Negative) Urine Nitrite Negative (Negative) Urine Bilirubin Negative (Negative) Urine Urobilinogen 2.0 (<2.0) mg/dL Ur Leukocyte Esterase Negative (Negative) Stool Occult Blood Negative (Negative) Disposition Clinical Impression: Vasovagal syncope Disposition: HOME SELF-CARE Condition: Good Instructions (If sedation given, give patient instructions): Syncope (ED) Additional Instructions: Follow-up with PCP. Report back to ER with any new or worsening symptoms. Stay well-hydrated. Is patient prescribed a controlled substance at d/c from ED?: No Referrals: Catarino Rick MD [Primary Care Provider] - 1-2 days Time of Disposition: 14:22
[2022-03-07 14:50] VITALS: BP 136/72; PULSE 52; RESP 18
== END 2022-03-07 14:50 | disposition home or self-care (01) ==
LOC: EC 11:51
DX: R55 Syncope and collapse (principal); I10 Essential (primary) hypertension; E78.5 Hyperlipidemia, unspecified; Z87.891 Personal history of nicotine dependence; Z79.899 Other long term (current) drug therapy
CPT/HCPCS: 36415; 70450; 71046; 80053; 81003; 82272; 83735; 84484; 85025; 85610; 85730; 93005; 96360; 99285

== ENCOUNTER 2023-04-24 18:25 | Emergency (ER) | payer MEDICARE ==
--- NOTE | 2023-04-24 18:46 | ED ---
General Adult HPI - General Source: patient, family, RN notes reviewed Mode of arrival: EMS Limitations: no limitations <Gracy Platt - Last Filed: 04/24/23 18:45> <Tarah Choi - Last Filed: 05/01/23 00:01> - General Stated complaint: syncope Time Seen by Provider: 04/24/23 18:45 - History of Present Illness Initial comments: Patient is an 82-year-old male presenting to the ER with a chief complaint of unresponsive episode. reports patient had his back standing towards her and she called his name and he did not respond. She states she walked over to him and he was unresponsive. She states she placed him on the floor and called 911. She states his unresponsive episode was about 5 to 6 minutes long. Patient denies any current complaints at this time. (Gracy Platt) 82-year-old male with past medical history of dementia presents emergency department after a unresponsive episode. states that she was trying to get his attention but the patient was not responding to her. She walked over to him and helped move him to the ground. She called 911. Episode lasted about 5 to 6 minutes. Patient denies any complaints. States he feels back to his baseline at this time. Denies having any chest pain or shortness of breath. No headaches or visual changes. No nausea or vomiting. No other alleviating, precipitating or modifying factors (Tarah Choi) - Related Data Home Medications Medication Instructions Recorded Confirmed Atorvastatin [Lipitor] 10 mg PO HS 08/25/17 03/07/22 Cyanocobalamin (Vitamin B-12) 1,000 mcg PO HS 08/25/17 03/07/22 [Vitamin B-12] Lisinopril-Hctz 20-12.5 mg 1 tab PO HS 08/25/17 03/07/22 [Zestoretic 20-12.5] Fallon-3 Fatty Acids/Fish Oil [Fish 2 cap PO HS 08/25/17 03/07/22 Oil 1,000 mg Softgel] amLODIPine BESYLATE [Norvasc] 2.5 mg PO HS 08/25/17 03/07/22 Donepezil [Aricept] 10 mg PO HS 02/04/22 03/07/22 Memantine HCl 10 mg PO BID 02/04/22 03/07/22 Cholecalciferol [Vitamin D3 (25 100 mcg PO HS 03/07/22 03/07/22 Mcg = 1000 Iu)] Pantoprazole [Protonix] 40 mg PO HS 03/07/22 03/07/22 Previous Rx's Medication Instructions Recorded Cephalexin [Keflex] 500 mg PO Q6HR #28 cap 04/24/23 Allergies Allergy/AdvReac Type Severity Reaction Status Date / Time No Known Allergies Allergy Verified 04/24/23 19:03 Review of Systems ROS Other: All systems not noted in ROS Statement are negative. <Gracy Platt - Last Filed: 04/24/23 18:45> ROS Other: All systems not noted in ROS Statement are negative. <Tarah Choi - Last Filed: 05/01/23 00:01> ROS Statement: Those systems with pertinent positive or pertinent negative responses have been documented in the HPI. Past Medical History Past Medical History: Hyperlipidemia, Hypertension, Memory Impairment Additional Past Medical History / Comment(s): short term memory loss, diagnosed with dementia in 2020 pt alert and appropriate at this time, recent weight loss without trying, History of Any Multi-Drug Resistant Organisms: None Reported Past Surgical History: Orthopedic Surgery Additional Past Surgical History / Comment(s): URINARY TRACT SURGERY, LEFT KNEE SURGERY Past Anesthesia/Blood Transfusion Reactions: No Reported Reaction Past Psychological History: No Psychological Hx Reported Smoking Status: Former smoker Past Alcohol Use History: None Reported Past Drug Use History: None Reported - Past Family History Mother Family Medical History: No Reported History <Gracy Platt - Last Filed: 04/24/23 18:45> General Exam <Gracy Platt - Last Filed: 04/24/23 18:45> General appearance: alert, in no apparent distress Head exam: Present: atraumatic, normocephalic, normal inspection Eye exam: Present: normal appearance, PERRL, EOMI. Absent: scleral icterus, con junctival injection, periorbital swelling ENT exam: Present: normal exam, mucous membranes moist Neck exam: Present: normal inspection. Absent: tenderness, meningismus, lymphadenopathy Respiratory exam: Present: normal lung sounds bilaterally. Absent: respiratory distress, wheezes, rales, rhonchi, stridor Cardiovascular Exam: Present: regular rate, normal rhythm, normal heart sounds. Absent: systolic murmur, diastolic murmur, rubs, gallop, clicks GI/Abdominal exam: Present: soft, normal bowel sounds. Absent: distended, tenderness, guarding, rebound, rigid Extremities exam: Present: normal inspection, full ROM, normal capillary refill. Absent: tenderness, pedal edema, joint swelling, calf tenderness Back exam: Present: normal inspection Neurological exam: Present: alert, oriented X3, CN II-XII intact Psychiatric exam: Present: normal affect, normal mood Skin exam: Present: warm, dry, intact, normal color. Absent: rash <Tarah Choi - Last Filed: 05/01/23 00:01> - General Exam Comments Initial Comments: Visual Physical Exam Vital signs reviewed General: Well-appearing, nontoxic, no acute distress. Head: Normocephalic, atraumatic Eyes: PERRLA, EOMI ENT: Airway patent Chest: Nonlabored breathing Skin: No visual rash, normal skin tone Neuro: Alert and oriented 3 Musculoskeletal: No gross abnormalities (Gracy Platt) Course Vital Signs 04/24/23 04/24/23 04/24/23 18:49 22:34 23:07 Temperature 101.3 F H 99.0 F Pulse Rate 100 67 Respiratory 18 18 Rate Blood Pressure 129/66 O2 Sat by Pulse 97 Oximetry Medical Decision Making <Gracy Platt - Last Filed: 04/24/23 18:45> - Lab Data Result diagrams: 04/24/23 19:06 04/24/23 19:06 <Tarah Choi - Last Filed: 05/01/23 00:01> - Medical Decision Making I performed the quick note portion of this chart. Electronically signed by Gracy Platt PA-C (Gracy Platt) Was pt. sent in by a medical professional or institution (JNOELLE Bae, RESOURCE ENGINEER, urgent care, hospital, or [place] health care facility...) When possible be specific @ -No Did you speak to anyone other than the patient for history (EMS, parent, family, police, friend...)? What history was obtained from this source @ - Did you review nursing and triage notes (agree or disagree)? Why? @ -I reviewed and agree with nursing and triage notes Were old charts reviewed (outside hosp., previous admission, EMS record, old EKG, old radiological studies, urgent care reports/EKG's, [place] health care facility records)? Report findings @ -No old charts were reviewed Differential Diagnosis (chest pain, altered mental status, abdominal pain women, abdominal pain men, vaginal bleeding, weakness, fever, dyspnea, syncope, headache, dizziness, GI bleed, back pain, seizure, CVA, palpatations, mental health, musculoskeletal)? @ -Differential Altered Mental Status: Hypoglycemia, DKA, hypercapnia, ETOH, overdose, CO poisoning, trauma, myxedema coma, HTN encephalopathy, infection, encephalitis, psychosis, intercranial hemorrhage, hepatic encephalopathy, meningitis, CVA, this is not meant to be an all-inclusive list EKG interpreted by me (3pts min.). @ -Yes and demonstrates sinus rhythm with rate of 80. WA interval 234. QRS 92. QTc of 374. No acute ST segment elevations or depressions X-rays interpreted by me (1pt min.). @ -Yes and demonstrates no acute process CT interpreted by me (1pt min.). @ -Yes and demonstrates no acute process U/S interpreted by me (1pt. min.). @ -None done What testing was considered but not performed or refused? (CT, X-rays, U/S, labs)? Why? @ -None What meds were considered but not given or refused? Why? @ -None Did you discuss the management of the patient with other professionals (professionals i.e. , PA, RESOURCE ENGINEER, lab, RT, psych nurse, social contact worker, public safety telecommunicator, teacher, police or patrol park officer, case mgr)? Give summary @ -No Was smoking cessation discussed for >3mins.? @ -No Was critical care preformed (if so, how long)? @ -No Were there social determinants of health that impacted care today? How? (Homelessness, low income, unemployed, alcoholism, drug addiction, t ransportation, low edu. Level, literacy, decrease access to med. care, retirement, rehab)? @ -No Was there de-escalation of care discussed even if they declined (Discuss DNR or withdrawal of care, Hospice)? DNR status @ -No What co-morbidities impacted this encounter? (DM, HTN, Smoking, COPD, CAD, Cance r, CVA, ARF, Chemo, Hep., AIDS, mental health diagnosis, sleep apnea, morbid obesity)? @ -Dementia Was patient admitted / discharged? Hospital course, mention meds given and route, prescriptions, significant lab abnormalities, going to OR and other pertinent info. @ -Upon arrival patient was seen and evaluated in room 1. Thorough history and physical exam was performed. IV access was established and laboratory studies are conducted. Chest x-ray and CT of the brain was performed. Patient does have a fever. Source found to be UTI. Patient is back to his baseline. Did offer admission however patient would prefer to go home. was agreeable to taking him home. He will be placed on antibiotics. Instructed to take them as directed and follow-up with her primary care doctor. Return for any new or worsening symptoms. Patient and are agreeable to this and the patient was discharged in stable condition Undiagnosed new problem with uncertain prognosis? @ -No Drug Therapy requiring intensive monitoring for toxicity (Heparin, Nitro, Insulin, Cardizem)? @ -No Were any procedures done? @ -No Diagnosis/symptom? @ -Acute transient encephalopathy, acute pyrexia, acute UTI Acute, or Chronic, or Acute on Chronic? @ -Acute Uncomplicated (without systemic symptoms) or Complicated (systemic symptoms)? @ -Complicated Side effects of treatment? @ -No Exacerbation, Progression, or Severe Exacerbation? @ -No Poses a threat to life or bodily function? How? (Chest pain, [place], [place], pneumonia, PE, COPD, DKA, ARF, appy, cholecystitis, CVA, Diverticulitis, Homicidal, Suicidal, threat to staff... and all critical care pts) @ -No (Tarah Choi) - Lab Data Lab Results 04/24/23 04/24/23 04/24/23 Range/Units 19:06 19:06 19:06 WBC 12.0 H (3.8-10.6) k/uL RBC 4.11 L (4.30-5.90) m/uL Hgb 12.8 L (13.0-17.5) gm/dL Hct 37.4 L (39.0-53.0) % MCV 90.9 (80.0-100.0) fL MCH 31.1 (25.0-35.0) pg MCHC 34.2 (31.0-37.0) g/dL RDW 12.5 (11.5-15.5) % Plt Count 179 (150-450) k/uL MPV 7.7 PT 11.1 (10.0-12.5) sec INR 1.0 (<1.2) APTT 20.6 L (22.0-30.0) sec Sodium 135 L (137-145) mmol/L Potassium 3.7 (3.5-5.1) mmol/L Chloride 101 (98-107) mmol/L Carbon Dioxide 30 (22-30) mmol/L Anion Gap 4 mmol/L BUN 17 (9-20) mg/dL Creatinine 0.93 (0.66-1.25) mg/dL Est GFR (CKD-EPI)AfAm 90 (>60 ml/min/1.73 sqM) Est GFR (CKD-EPI)NonAf 78 (>60 ml/min/1.73 sqM) Glucose 153 H (74-99) mg/dL Calcium 9.0 (8.4-10.2) mg/dL Total Bilirubin 0.9 (0.2-1.3) mg/dL AST 32 (17-59) U/L ALT 24 (4-49) U/L Alkaline Phosphatase 76 (38-126) U/L Total Protein 7.1 (6.3-8.2) g/dL Albumin 4.3 (3.5-5.0) g/dL Urine Color Urine Appearance (Clear) Urine pH (5.0-8.0) Ur Specific [place] (1.001-1.035) Urine Protein (Negative) Urine Glucose (UA) (Negative) Urine Ketones (Negative) Urine Blood (Negative) Urine Nitrite (Negative) Urine Bilirubin (Negative) Urine Urobilinogen (<2.0) mg/dL Ur Leukocyte Esterase (Negative) Urine RBC (0-5) /hpf Urine WBC (0-5) /hpf Ur Squamous Epith Cells (0-4) /hpf Urine Bacteria (None) /hpf Urine Mucus (None) /hpf Influenza Type A (PCR) (Not Detectd) Influenza Type B (PCR) (Not Detectd) RSV (PCR) (Not Detectd) SARS-CoV-2 (PCR) (Not Detectd) 04/24/23 04/24/23 Range/Units 22:14 22:14 WBC (3.8-10.6) k/uL RBC (4.30-5.90) m/uL Hgb (13.0-17.5) gm/dL Hct (39.0-53.0) % MCV (80.0-100.0) fL MCH (25.0-35.0) pg MCHC (31.0-37.0) g/dL RDW (11.5-15.5) % Plt Count (150-450) k/uL MPV PT (10.0-12.5) sec INR (<1.2) APTT (22.0-30.0) sec Sodium (137-145) mmol/L Potassium (3.5-5.1) mmol/L Chloride (98-107) mmol/L Carbon Dioxide (22-30) mmol/L Anion Gap mmol/L BUN (9-20) mg/dL Creatinine (0.66-1.25) mg/dL Est GFR (CKD-EPI)AfAm (>60 ml/min/1.73 sqM) Est GFR (CKD-EPI)NonAf (>60 ml/min/1.73 sqM) Glucose (74-99) mg/dL Calcium (8.4-10.2) mg/dL Total Bilirubin (0.2-1.3) mg/dL AST (17-59) U/L ALT (4-49) U/L Alkaline Phosphatase (38-126) U/L Total Protein (6.3-8.2) g/dL Albumin (3.5-5.0) g/dL Urine Color Yellow Urine Appearance Cloudy (Clear) Urine pH 6.0 (5.0-8.0) Ur Specific [place] 1.027 (1.001-1.035) Urine Protein 1+ H (Negative) Urine Glucose (UA) Negative (Negative) Urine Ketones Negative (Negative) Urine Blood Negative (Negative) Urine Nitrite Negative (Negative) Urine Bilirubin Negative (Negative) Urine Urobilinogen 2.0 (<2.0) mg/dL Ur Leukocyte Esterase Moderate H (Negative) Urine RBC 16 H (0-5) /hpf Urine WBC 29 H (0-5) /hpf Ur Squamous Epith Cells 4 (0-4) /hpf Urine Bacteria Occasional H (None) /hpf Urine Mucus Many H (None) /hpf Influenza Type A (PCR) Not Detected (Not Detectd) Influenza Type B (PCR) Not Detected (Not Detectd) RSV (PCR) Not Detected (Not Detectd) SARS-CoV-2 (PCR) Not Detected (Not Detectd) Disposition <Gracy Platt - Last Filed: 04/24/23 18:45> Is patient prescribed a controlled substance at d/c from ED?: No Time of Disposition: 23:29 <Tarah Choi - Last Filed: 05/01/23 00:01> Clinical Impression: Syncope, Pyrexia, Urinary tract infection Disposition: HOME SELF-CARE Condition: Stable Instructions (If sedation given, give patient instructions): Urinary Tract Infection in Men (ED) Additional Instructions: Alternate taking 650 mg of Tylenol with 600 mg of ibuprofen every 4 hours for fever control. Next dose would be Tylenol at 4 AM. take the antibiotics starting tomorrow. Follow-up with your doctor. Return for any new or worsening symptoms Prescriptions: Cephalexin [Keflex] 500 mg PO Q6HR #28 cap Referrals: Catarino Rick MD [Primary Care Provider] - 1-2 days
[2023-04-24 18:58] VITALS: RESP 18
[2023-04-24] MEDS: ACETAMINOPHEN TAB 325 MG TAB PO STA (19:06)
[2023-04-24 19:32] LABS: HCT 37.4 % (39.0-53.0); HGB 12.8 gm/dL (13.0-17.5); MCH 31.1 pg (25.0-35.0); MCHC 34.2 g/dL (31.0-37.0); MCV 90.9 fL (80.0-100.0); Mean Platelet Volume 7.7; Platelet Count 179 k/uL (150-450); RBC 4.11 m/uL (4.30-5.90); RDW 12.5 % (11.5-15.5)
--- NOTE | 2023-04-24 19:35 | XR ---
EXAMINATION TYPE: XR chest 2V DATE OF EXAM: 04/24/2023 7:29 PM CLINICAL INDICATION:Male, 82 years old with history of syncope; COMPARISON: Chest radiographs from 03/07/2022 TECHNIQUE: XR chest 2V Frontal and lateral views of the chest. FINDINGS: Lungs/Pleura: There is no evidence of pleural effusion, focal consolidation, or pneumothorax. Pulmonary vascularity: Unremarkable. Heart/mediastinum: Cardiomediastinal silhouette is unremarkable. Musculoskeletal: No acute osseous pathology. Other findings: None IMPRESSION: No acute cardiopulmonary disease/process.
[2023-04-24 19:50] LABS: Prothrombin Time 11.1 sec (10.0-12.5)
[2023-04-24 19:54] LABS: Partial Thromboplastin Time 20.6 sec (22.0-30.0)
--- NOTE | 2023-04-24 20:24 | CT ---
EXAMINATION TYPE: CT brain wo con CT DLP: 1192.4 mGycm, Automated exposure control for dose reduction was used. DATE OF EXAM: 04/24/2023 8:06 PM COMPARISON: 03/07/2022. CLINICAL INDICATION:Male, 82 years old with history of syncope, AMS TECHNIQUE: Brain: Axial CT images of the brain were obtained with coronal and sagittal reformats created and rev iewed. Contrast used: None. Oral contrast used: None. FINDINGS: Brain: Extra-axial spaces: No abnormal extra-axial fluid collections. Ventricular system: Dilatation in proportion to cerebral atrophy. Cerebral parenchyma: Cerebral atrophy. No acute intraparenchymal hemorrhage or mass effect. The parikh -white junction is well differentiated. Cerebellum: Unremarkable. Mass effect: No evidence of midline shift. Intracranial vasculature: Atherosclerotic calcifications of the intracranial vessels. Soft tissues: Normal. Calvarium/osseous structures: No depressed skull fracture. Paranasal sinuses and mastoid air cells: Mild scattered paranasal sinus disease. Visualized orbits: Orbital contents are intact. IMPRESSION: 1. No acute intracranial process. 2. Nonspecific white matter changes, likely secondary to chronic small vessel ischemic disease.
[2023-04-24 20:40] LABS: ALT 24 U/L (4-49); AST 32 U/L (17-59); African American GFR (CKD) 90 (>60 ml/min/1.73 sqM); Albumin 4.3 g/dL (3.5-5.0); Alkaline Phosphatase 76 U/L (38-126); Anion Gap 4 mmol/L; Blood Urea Nitrogen 17 mg/dL (9-20); Carbon Dioxide 30 mmol/L (22-30); Chloride 101 mmol/L (98-107); Glucose 153 mg/dL (74-99); Non-African American GFR(CKD) 78 (>60 ml/min/1.73 sqM); Potassium 3.7 mmol/L (3.5-5.1); Sodium 135 mmol/L (137-145); Total Bilirubin 0.9 mg/dL (0.2-1.3); Total Protein 7.1 g/dL (6.3-8.2)
[2023-04-24 22:32] LABS: Appearance,Urine Cloudy (Clear); Bacteria,Urine Occasional /hpf; Bilirubin,Urine Negative (Negative); Blood,Urine Negative (Negative); Color,Urine Yellow; Glucose,Urine (UA) Negative (Negative); Ketones,Urine Negative (Negative); Leukocyte Esterase,Urine Moderate (Negative); Mucus,Urine Many /hpf; Nitrite,Urine Negative (Negative); Protein,Urine 1+ (Negative); RBC,Urine 16 /hpf (0-5); Specific Gravity,Urine 1.027 (1.001-1.035); Squamous Epithelial Cell,Urine 4 /hpf (0-4); WBC,Urine 29 /hpf (0-5)
[2023-04-24 22:48] VITALS: BP 129/66; PULSE 67
[2023-04-24 23:21] VITALS: TEMP 99
[2023-04-24] MEDS: IBUPROFEN 600 MG TAB PO STA (23:35)
[2023-04-24] MEDS: cefTRIAXone IN SWFI 1,000 MG/10 ML SYRINGE IVP STA (23:37)
== END 2023-04-24 23:53 | disposition home or self-care (01) ==
LOC: EC 18:25
DX: R55 Syncope and collapse (principal); N39.0 Urinary tract infection, site not specified; G93.40 Encephalopathy, unspecified; I10 Essential (primary) hypertension; F03.90 Unspecified dementia, unspecified severity, without behavioral disturbance, psychotic disturbance, mood disturbance, and anxiety; E78.5 Hyperlipidemia, unspecified; Z20.822 Contact with and (suspected) exposure to COVID-19; Z87.891 Personal history of nicotine dependence; Z79.899 Other long term (current) drug therapy
CPT/HCPCS: 36415; 93005; 80053; 85027; 85610; 85730; 81001; 87636; 71046; 70450; 99285; 96374; J0696

== ENCOUNTER → 2023-05-17 | Outpatient (CLI) | payer MEDICARE ==
--- NOTE | 2023-05-17 12:24 | US ---
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 Indirect Doppler criteria was utilized. FINDINGS: EXAM MEASUREMENTS: RIGHT: Peak Systolic Velocity (PSV) cm/sec ----- Right CCA: 90 ----- Right ICA: 71.1 ----- Right ECA: 46.4 ICA/CCA ratio: 0.8 RIGHT: End Diastole cm/sec ----- Right CCA: 14.4 ----- Right ICA: 21.7 ----- Right ECA: 0 LEFT: Peak Systolic Velocity (PSV) cm/sec ----- Left CCA: 97.3 ----- Left ICA: 74 ----- Left ECA: 47.8 ICA/CCA ratio: 0.8 LEFT: End Diastole cm/sec ----- Left CCA: 20.2 ----- Left ICA: 18.8 ----- Left ECA: 0 VERTEBRALS (direction of flow): Right Vertebral: Antegrade Left Vertebral: Antegrade Rhythm: Normal SIGNAL MECHANIC NOTES: No significant stenosis seen Couple of very small plaques are identified within the carotid bifurcations. No occlusion identified IMPRESSION: 1. Minimal atheromatous plaquing without significant flow-limiting stenosis Criteria for Assigning % of Stenosis / Diameter reduction (Estimation based on the indirect measurements of the internal carotid artery velocities (ICA PSV). 1. Normal (no stenosis)=ICA PSV < 125 cm/s: ratio < 2.0: ICA EDV<40 cm/s. 2. Less than 50% stenosis=ICA PSV < 125 cm/s: ratio < 2.0: ICA EDV<40 cm/s. 3. 50 to 69% stenosis=ICA PSV of 125 to 230 cm/s: ration 2.0 ? 4.0: ICA EDV 40-100 cm/s. 4. Greater than 70% stenosis to near occlusion= ICA PSV > 230 cm/s: ratio > 4.0: ICA EDV > 100 cm/s. 5. Near occlusion= ICA PSV velocities may be low or undetectable: variable ratio and ICA EDV. 6. Total occlusion=unable to detect flow.
== END | disposition home or self-care (01) ==
LOC: RADUSWWP 10:06
PROVIDERS: ATTEND Psychiatry & Neurology Neurology
DX: I65.21 Occlusion and stenosis of right carotid artery (principal)